=== PATIENT | female | born 1980 | race Caucasian/White ===

== ENCOUNTER 2021-09-23 10:37 | Emergency (ER) | payer OTHER, SELFPAY ==
[2021-09-23 11:26] VITALS: BP 110/86; PULSE 88; RESP 18; TEMP 36.8; O2SAT 99
--- NOTE | 2021-09-23 12:04 | ED_ITS ---
HPI - Nausea/Vomiting/Diarrhea General Chief complaint: Nausea/Vomiting/Diarrhea Stated complaint: Diarrhea,Nausea Source: patient and RN notes reviewed Limitations: no limitations History of Present Illness HPI Narrative: The boost vaccinated patient, previously healthy RN, presents with nausea and diarrhea. Patient is here with other autistic, unwell preschoolers who came home from day school and have vomiting with diarrhea;A couple days ago , she has had nausea and diarrhea 15 times in 1 day. No diarrhea now, fever, vomiting, tenesmus, blood, abdominal pain, weight loss, foreign travel, camping-family pet dog has been diagnosed with Giardia[so they want stool testing]. Symptoms are mild slightly worse eating. Related Data Allergies Allergy/AdvReac Type Severity Reaction Status Date / Time No Known Allergies Allergy Verified 09/23/21 12:16 Review of Systems Review of Systems: General/Constitutional: No weight loss,fever Eyes: N0: Redness,discharge Ears/Nose/Throat: No: Epistaxis,ear discharge Respiratory: Denies: Hemoptysis Gastrointestinal: No Vomiting, Bleeding-rectal Skin: No Lumps, eruption Neurologic: No Focal Weakness,Sz Hematologic: Denies: Petechiae/Purpura Psychiatric: No: Suicida ideationl All Other Systems: Reviewed and Negative PMFSH Comments At time of signature, agree with nursing past medical, surgical, social and family history. There is no relevant family history pertinent to the presenting complaint Exam Narrative: General Appearance: Well appearing, Conjunctiva clear Ears: External ear normal Nose: Normal nose Mouth/Throat: Normal appearing, Normal lips, Supple Respiratory: Airway patent, No respiratory distress Cardiovascular: RRR Abdomen: Soft, Non-tender, No massess, Musculoskeletal: Full ROM Skin: Warm, Dry Neurological: A&O x3, Normal affect Course Vital Signs Vital signs: Vital Signs Temperature 98.3 F 09/23/21 11:26 Pulse Rate 88 09/23/21 11:26 Respiratory Rate 18 09/23/21 11:26 Blood Pressure 110/86 09/23/21 11:26 Pulse Oximetry 99 09/23/21 11:26 Temperature 98.3 F 09/23/21 11:26 Pulse Rate 88 09/23/21 11:26 Respiratory Rate 18 09/23/21 11:26 Blood Pressure 110/86 09/23/21 11:26 Pulse Oximetry 99 09/23/21 11:26 Discharge Plan Discharge Clinical Impression: Patient request for diagnostic testing, Hx of diarrhea Patient Disposition: Home, Self-Care Condition: Stable Instructions: Acute Diarrhea (ED) Additional Instructions: You may take OTC preparations like Imodium Prescriptions: New metronidazole 250 mg tablet 250 mg PO Q8H Qty: 20 RF: 0 Other Ambulatory Orders: Giardia EIA (Routine) Timeframe: 1 Day Location: Determined by Patient Ordered By: Skip Burt Rotavirus Stool (Routine) Timeframe: 1 Day Location: Determined by Patient Ordered By: Skip Burt Follow-up/Referrals: MULHALL, [Primary Care Provider] -
[2021-09-25 19:45] LABS: SARS-CoV-2 RNA PCR Negative
== END 2021-09-23 12:36 | disposition home or self-care (01) ==
PROVIDERS: Emergency Provider Emergency Medicine
DX: R19.7 Diarrhea, unspecified (principal); Z20.822 Contact with and (suspected) exposure to COVID-19
CPT/HCPCS: 99203; C9803; G0463; U0003; U0005